=== PATIENT | male | born 1945 | race Caucasian/White ===

== ENCOUNTER → 2019-02-11 | Day surgery (SDC) | payer OTHER ==
[~2019-02-11] MED LIST: Diazepam TAB(*) 5 MG ONE; Lidocaine 1% INJ* 10 MG/ML 30 ML SDV ONE; Midazolam* 1 MG/ML 5 ML VIAL (5 MG) ONE; Potassium Chlor TAB* 20 MEQ TAB.ER PO ONE; ceFAZolin 1 GM* X ONE DOSE (AddVan) IVPB; fentaNYL* 50 MCG/ML 2 ML VIAL (100 MCG VIAL) ONE
[2019-02-11 08:49] LABS: ABS Basophils 0.1 10^3/ul (0-0.2); ABS Eosinophils 0.3 10^3/ul (0-0.6); ABS Lymphocytes 2.2 10^3/ul (1.0-4.8); ABS Monocytes 0.7 10^3/ul (0-0.8); ABS Neutrophils 4.5 10^3/ul (1.5-7.7); Eosinophil % 4.1 %; Hematocrit 41 % (42-52); Hemoglobin 13.9 g/dL (14.0-18.0); Lymphocyte % 28.4 %; Mean Corpuscular HGB Conc 34 g/dL (31-36); Mean Corpuscular Hemoglobin 31 pg (27-31); Mean Corpuscular Volume 91 fL (80-94); Mean Platelet Volume 8.5 fL (7.4-10.4); Platelet Count 184 10^3/uL (150-450); Red Blood Count 4.46 10^6 /uL (4.18-5.48); Red Cell Distribution Width 14 % (10-15); White Blood Count 7.8 10^3/uL (3.5-10.8)
[2019-02-11 09:00] LABS: Activated Partial Thrombo Time 37.9 seconds (26.0-38.0); INR 0.98 (0.82-1.09)
[2019-02-11 09:06] LABS: BUN/Creatinine Ratio 23.9 (8-20); Calcium 9.6 mg/dL (8.6-10.3); EGFR African American 50.4 (>60); EGFR Non-African American 41.7 (>60); Potassium 3.3 mmol/L (3.5-5.0)
[2019-02-11 12:13] VITALS: BP 119/58
--- NOTE | 2019-02-12 13:21 | OP ---
CC: Dr. Bernice Esteves; Primary Care Physician * DATE OF OPERATION: 02/11/19 - [facility] CATH DATE OF : 45 SURGEON: Dr. Bernice Esteves. ANESTHESIA: MAC. 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 OPERATIVE PROCEDURE: Dual-chamber pacemaker generator change. COMPLICATIONS: None. ESTIMATED BLOOD LOSS: Less than 5 cc DESCRIPTION OF PROCEDURE: The indications, risks, and benefits were discussed with the patient in the office and again the morning of the procedure in the presence of his bead cutter. He was amenable to proceeding. The existing device was in the left subclavian fossa. This area was prepped and draped in the usual sterile fashion. A time-out was called. The patient received Versed and fentanyl and 1% lidocaine for sedation, amounts documented separately. Following local anesthesia and sedation, using a 10-blade knife, a 2.5-cm incision was made over the existing device and using Bovie and blunt dissection , it was extended to the level of the fibrous sheath. Once the fascial sheath covering the device was reached using Metzenbaum scissors, a small bailey was fashioned and using the scissors, the sheath was cut medially and laterally taking care to avoid any leads. The device was then explanted, the leads inspected, were found to be good. The device was removed from the leads. The leads were checked, thresholds were stable, the ventricular pacing threshold had been high but was stable. The pocket was then copiously irrigated, the leads were attached to the new generator. The new generator was placed in the pocket. The incision was closed with 2 layers of resorbable suture, two 2-0 and then one 4-0 followed by maritza and external dressing. FINDINGS: The explanted device was a Medtronic model A2DR01, serial number [id number]. The newly implanted device is a Medtronic model W1DR01, serial number [id number]. The existing atrial lead is a Medtronic [id number], serial number [id number]. The existing ventricular lead was a Medtronic model [id number], serial number [id number]. P waves were sensed at 6 millivolts with an atrial lead impedance of 369 ohms and an atrial pacing threshold of 0.7 volts at 0.4 milliseconds. The ventricular lead sensed R-waves at 12.5 millivolts. The ventricular lead impedance was 1138 ohms and then ventricular pacing threshold was 2.6 volts at 1 milliseconds. The patient programming and discharge was AAI/DDD with a low rate of 60 beats a minute. CONCLUSION: The patient underwent dual-chamber pacemaker generator change. RV pacing threshold was high but stable. There were no complications. The patient was hemodynamically stable throughout the procedure. [id number]/[facility] #: [id number] SHANE
== END | disposition home or self-care (01) ==
LOC: CHICATH 07:54
PROVIDERS: ATTEND Specialist
DX: Z45.010 Encounter for checking and testing of cardiac pacemaker pulse generator [battery] (principal); I44.1 Atrioventricular block, second degree; E11.9 Type 2 diabetes mellitus without complications; Z79.84 Long term (current) use of oral hypoglycemic drugs; I12.9 Hypertensive chronic kidney disease with stage 1 through stage 4 chronic kidney disease, or unspecified chronic kidney disease; N18.9 Chronic kidney disease, unspecified; Z87.891 Personal history of nicotine dependence
CPT/HCPCS: 33228; 36415; 80048; 85025; 85610; 85730; 88300; 99156; 99157; A9270-GY; C1785; J0690; J2250; J3010